=== PATIENT | female | born 1950 | race Caucasian/White ===

== ENCOUNTER → 2016-06-04 | Outpatient (CLI) | payer MEDICARE ==
[2016-04-30 09:55] VITALS: BP 133/73
[~2016-06-04] MED LIST: BUPR150T8 PO; CLON0.5T3 PO; CLOZ100T7 PO; ESCI10TA PO; LEVO175T5 PO; MULT-658 PO; OMEP20TA PO; RISP2TAB PO; SINCALIDE 1.52 MCG in IV NORMAL SALINE 50ML 30 ML IV ONE
--- NOTE | 2016-06-04 10:17 | RAD ---
Indication:Upper abdominal pain Grayscale images of the abdomen were obtained. Comparison 07/05/2012. Note is made of a CT examination of the abdomen and pelvis 04/06/2016 Liver:A focal mass lesion in the visualized liver is not seen. Tiny liver lesion, felt to represent a cyst, identified on the referenced CT examination is not reproduced on this study. Gallbladder:Normal. The common bile diameter of approximately 4 mm is normal. Spleen:Enlarged. There are occasional low density masses and the spleen and a hyperechoic mass. These probably represent cysts and hemangiomas respectively. Similar findings were seen on the previous ultrasound and the referenced CT examination. Pancreas:Largely obscured by gas and poorly visualized Kidneys:Normal Abdominal aorta and IVC:Similar to the pancreas poorly visualized and largely obscured] Ancillary findings:None Impression:Midline structures largely obscured. Splenomegaly with probable cysts and hemangiomas similar to previous exams. No acute finding seen
--- NOTE | 2016-06-04 12:25 | RAD ---
Radionuclide hepatobiliary scan with gallbladder ejection fraction, 06/04/2016: History: Abdominal pain Following IV injection of 5.5 mCi of technetium 99m Choletec there was prompt uptake of the radionuclide from the blood stream by the liver. Activity is present in the bile ducts and gallbladder at 10 minutes. Small bowel activity develops at 15 minutes. Additional imaging of the gallbladder was performed following IV injection of 1.5 mcg of cholecystokinin. The gallbladder ejection fraction was calculated at 84%. IMPRESSION: 1. Normal radionuclide hepatobiliary scan. 2. The gallbladder ejection fraction is 84%.
== END | disposition home or self-care (01) ==
LOC: US 09:18
PROVIDERS: ATTEND Physician Assistant
DX: R16.1 Splenomegaly, not elsewhere classified (principal); K76.9 Liver disease, unspecified
CPT/HCPCS: 76700; 78226; A9537; J2805

== ENCOUNTER 2017-10-23 15:01 | Inpatient (IN) | payer MEDICARE, BC ==
[2017-10-23] MEDS ORDERED: IV NORMAL SALINE 500ML BAG 500 ML IV (15:45)
[2017-10-23] MEDS: IBUPROFEN 800 MG TABLET. PO (15:48)
[2017-10-23] MEDS: ACETAMINOPHEN 500 MG TABLET PO (15:49)
[2017-10-23] MEDS: IV NORMAL SALINE 1000ML BAG 1,000 ML IV ×2 (15:49→22:47)
[2017-10-23 16:20] LABS: LACTIC ACID 2.3 mmol/L (0.4-2.0)
[2017-10-23 16:20] LABS: BILIRUBIN,URINE SMALL (NEG); CLARITY,URINE CLEAR; COLOR,URINE YELLOW; GLUCOSE,URINE NEGATIVE (NEG); NITRITE,URINE NEGATIVE (NEG); PH,URINE 5.5; PROTEIN,URINE NEGATIVE (NEG-TRACE)
[2017-10-23 16:33] LABS: ADD MAN DIFF? NO; BASO % 0 % (0-3); EOS % 0 % (0-3); HEMATOCRIT 37.8 % (36.0-47.0); HEMOGLOBIN 13.2 g/dL (12.0-15.5); LYMPH # 0.1 x10^3/uL (1.0-4.8); LYMPH % 4 % (24-48); MEAN CORPUSCULAR HEMOGLOBIN 31 pg (25-35); MEAN CORPUSCULAR HGB CONC 35 g/dL (31-37); MEAN CORPUSCULAR VOLUME 89 fL (79-100); MONO # 0.4 x10^3/uL (0.0-1.1); MONO % 11 % (0-9); NEUT # 2.7 x10^3uL (1.8-7.7); NEUT % 84 % (31-73); PLATELET COUNT 63 x10^3/uL (140-400); RED BLOOD COUNT 4.23 x10^6/uL (3.50-5.40); RED CELL DISTRIBUTION WIDTH 13.7 % (11.5-14.5); WHITE BLOOD COUNT 3.3 x10^3/uL (4.0-11.0)
[2017-10-23 16:41] LABS: BACTERIA,URINE MODERATE /HPF (0-FEW); HYALINE CASTS, URINE MODERATE /HPF; RBC,URINE 0 /HPF (0-2); SQUAMOUS EPITHELIAL CELL,UR MOD /LPF
[2017-10-23 16:44] LABS: ANION GAP 12 (6-14); BLOOD UREA NITROGEN 18 mg/dL (7-20); BUN/CREATININE RATIO 14 (6-20); CARBON DIOXIDE 26 mmol/L (21-32); CHLORIDE 103 mmol/L (98-107); CREATININE 1.3 mg/dL (0.6-1.0); GLUCOSE 147 mg/dL (70-99); POTASSIUM 4.1 mmol/L (3.5-5.1); SODIUM 141 mmol/L (136-145)
[2017-10-23 16:48] LABS: TROPONINI < 0.017 ng/mL (0.000-0.055)
[2017-10-23 16:49] LABS: ALBUMIN/GLOBULIN RATIO 1.6 (1.0-1.7); ALK PHOS 104 U/L (46-116); ALT (SGPT) 30 U/L (14-59); AST (SGOT) 29 U/L (15-37); TOTAL BILIRUBIN 0.5 mg/dL (0.2-1.0); TOTAL PROTEIN 6.5 g/dL (6.4-8.2)
[2017-10-23 16:53] LABS: CKMB INDEX 0.1 % (0-4); CKMB MASS 0.6 ng/mL (0.0-3.6); CREATINE KINASE 892 U/L (26-192)
[2017-10-23 17:02] LABS: % BANDS 5 % (0-9); % LYMPHS 10 % (24-48); % MONOS 9 % (0-10); % SEGS 76 % (35-66)
[2017-10-23 17:03] LABS: PLT ESTIMATE DECREASED (ADEQUATE)
[2017-10-23] MEDS ORDERED: ACETAMINOPHEN 325 MG TABLET. PO (17:15)
[2017-10-23] MEDS ORDERED: ONDANSETRON PF 4 MG/2 ML VIAL. IV ×2 (17:15)
[2017-10-23] MEDS ORDERED: MORPHINE SULFATE 2 MG/ML DISP.SYRIN. IV ×2 (17:15)
[2017-10-23] MEDS ORDERED: oxyCODONE IR 5 MG TABLET PO (17:15)
[2017-10-23] MEDS ORDERED: MAGNESIUM HYDROXIDE 2,400 MG/30 ML ORAL.SUSP. PO (17:15)
[2017-10-23] MEDS ORDERED: PROCHLORPERAZINE 10 MG/2 ML VIAL. IV (17:15)
[2017-10-23] MEDS ORDERED: PROCHLORPERAZINE 25 MG SUPP.RECT. PR (17:15)
[2017-10-23] MEDS ORDERED: LACTULOSE 20 GM/30 ML SOLUTION. PO (17:15)
[2017-10-23] MEDS ORDERED: MAG HYDROX/ALUMINUM HYD/SIMETH 30 ML ORAL.SUSP PO (17:15)
[2017-10-23] MEDS ORDERED: KETOROLAC 15 MG/ML VIAL. IV (17:15)
[2017-10-23] MEDS ORDERED: IBUPROFEN 400 MG TABLET. PO (17:15)
[2017-10-23] MEDS ORDERED: BISACODYL 10 MG SUPP.RECT. PR (17:15)
[2017-10-23] MEDS ORDERED: IBUPROFEN 800 MG TABLET. PO (17:15)
[2017-10-23] MEDS: CIPROFLOXACIN 400MG PREMIX 200 ML IV (17:44)
[2017-10-23 17:53] LABS: THYROID STIM HORMONE (TSH) 0.094 uIU/mL (0.358-3.74)
[2017-10-23 17:53] LABS: FREE T4 1.06 ng/dL (0.76-1.46)
[2017-10-23 17:57] LABS: PROCALCITONIN 0.39 ng/mL (0.00-0.10)
[2017-10-23] MEDS: IV 1/2 NORMAL SALINE 1,000 ML IV (20:24)
[2017-10-23 21:18] LABS: LACTIC ACID 1.1 mmol/L (0.4-2.0)
[2017-10-23] MEDS: DOCUSATE SODIUM 100 MG CAPSULE. PO (22:48)
[2017-10-24] MEDS: IV 1/2 NORMAL SALINE 1,000 ML IV ×2 (03:15→15:40)
[2017-10-24] MEDS: DOCUSATE SODIUM 100 MG CAPSULE. PO ×2 (08:05→21:09)
[2017-10-24] MEDS: clonazePAM 0.5 MG TABLET PO (08:05)
[2017-10-24] MEDS: CIPROFLOXACIN 400MG PREMIX 200 ML IV (08:06)
[2017-10-24] MEDS: CITALOPRAM 20 MG TABLET. PO (08:06)
[2017-10-24] MEDS: LEVOTHYROXINE 175 MCG TABLET PO (08:06)
[2017-10-24] MEDS: PANTOPRAZOLE 40 MG TABLET.DR. PO (08:06)
[2017-10-24] MEDS: MULTIVITAMIN with MINERAL TABLET. PO (08:06)
[2017-10-24] MEDS: cloZAPine 100 MG TABLET PO ×2 (08:07→21:08)
[2017-10-24] MEDS: cloZAPine 25 MG TABLET PO (08:07)
[2017-10-24 09:08] LABS: ANION GAP 9 (6-14); BLOOD UREA NITROGEN 15 mg/dL (7-20); CARBON DIOXIDE 23 mmol/L (21-32); CHLORIDE 106 mmol/L (98-107); CREATININE 1.2 mg/dL (0.6-1.0); GFR 44.9; GLUCOSE 204 mg/dL (70-99); POTASSIUM 3.9 mmol/L (3.5-5.1); SODIUM 138 mmol/L (136-145)
[2017-10-24 09:09] LABS: BASO % 0 % (0-3); EOS % 0 % (0-3); HEMATOCRIT 31.6 % (36.0-47.0); LYMPH # 0.1 x10^3/uL (1.0-4.8); LYMPH % 4 % (24-48); MEAN CORPUSCULAR HEMOGLOBIN 32 pg (25-35); MEAN CORPUSCULAR HGB CONC 35 g/dL (31-37); MEAN CORPUSCULAR VOLUME 90 fL (79-100); MONO # 0.3 x10^3/uL (0.0-1.1); MONO % 11 % (0-9); NEUT # 2.1 x10^3uL (1.8-7.7); NEUT % 85 % (31-73); PLATELET COUNT 48 x10^3/uL (140-400); RED CELL DISTRIBUTION WIDTH 13.4 % (11.5-14.5)
[2017-10-24 09:11] LABS: INR 1.2 (0.8-1.1); PROTHROMBIN TIME PATIENT 15.1 SEC (11.7-14.0)
[2017-10-24 09:13] LABS: ADD MAN DIFF? YES
[2017-10-24 10:36] LABS: % BANDS 5 % (0-9); % LYMPHS 8 % (24-48); % MONOS 3 % (0-10); % SEGS 84 % (35-66); PLT ESTIMATE DECREASED (ADEQUATE)
[2017-10-24 11:24] LABS: FIBRINOGEN 407 mg/dL (200-440); PARTIAL THROMBOPLASTIN TIME 39 SEC (24-38); RETIC COUNT 1.9 % (0.5-2.5)
[2017-10-24 11:44] LABS: LACTATE DEHYDROGENASE 228 U/L (81-234)
[2017-10-24 12:34] LABS: HIV AB SCREEN Nonreactive (Nonreactive)
[2017-10-24] MEDS: ACETAMINOPHEN 325 MG TABLET. PO (15:40)
[2017-10-24] MEDS: cefTRIAXone IV Push 1 GM VIAL. IVP (17:35)
[2017-10-24 20:09] LABS: MRSA BY PCR Negative (Negative)
[2017-10-25] MEDS: IV 1/2 NORMAL SALINE 1,000 ML IV ×3 (00:57→22:00)
[2017-10-25 05:16] LABS: ADD MAN DIFF? NO
[2017-10-25 05:28] LABS: BASO % 1 % (0-3); EOS % 0 % (0-3); HEMATOCRIT 30.6 % (36.0-47.0); HEMOGLOBIN 10.7 g/dL (12.0-15.5); LYMPH # 0.4 x10^3/uL (1.0-4.8); LYMPH % 16 % (24-48); MEAN CORPUSCULAR HEMOGLOBIN 31 pg (25-35); MEAN CORPUSCULAR HGB CONC 35 g/dL (31-37); MEAN CORPUSCULAR VOLUME 90 fL (79-100); MONO # 0.4 x10^3/uL (0.0-1.1); MONO % 15 % (0-9); NEUT # 1.7 x10^3uL (1.8-7.7); NEUT % 67 % (31-73); PLATELET COUNT 47 x10^3/uL (140-400); RED BLOOD COUNT 3.41 x10^6/uL (3.50-5.40); RED CELL DISTRIBUTION WIDTH 13.4 % (11.5-14.5); WHITE BLOOD COUNT 2.5 x10^3/uL (4.0-11.0)
[2017-10-25] MEDS: PANTOPRAZOLE 40 MG TABLET.DR. PO (08:25)
[2017-10-25] MEDS: LEVOTHYROXINE 175 MCG TABLET PO (08:25)
[2017-10-25] MEDS: cloZAPine 25 MG TABLET PO (09:00)
[2017-10-25] MEDS: cloZAPine 100 MG TABLET PO ×2 (09:00→20:07)
[2017-10-25] MEDS: clonazePAM 0.5 MG TABLET PO (09:04)
[2017-10-25] MEDS: MULTIVITAMIN with MINERAL TABLET. PO (09:04)
[2017-10-25] MEDS: CITALOPRAM 20 MG TABLET. PO (09:05)
[2017-10-25] MEDS: DOCUSATE SODIUM 100 MG CAPSULE. PO ×2 (09:05→20:33)
[2017-10-25] MEDS ORDERED: PIP/TAZO PER PHARMACY MC (13:45)
[2017-10-25] MEDS: PIPERACILLIN/TAZOBACTAM 3.375 GM in IV NORMAL SALINE 50ML 50 ML IV ×2 (14:33→18:42)
[2017-10-25] MEDS ORDERED: PIPERACILLIN/TAZOBACTAM 4.5 GM in IV NORMAL SALINE 100ML 100 ML IV (18:00)
[2017-10-25] MEDS: CALCIUM CARBONATE 500 MG TAB.CHEW PO (21:47)
[2017-10-26] MEDS: PIPERACILLIN/TAZOBACTAM 3.375 GM in IV NORMAL SALINE 50ML 50 ML IV ×5 (01:24→23:45)
[2017-10-26 05:38] LABS: ADD MAN DIFF? NO
[2017-10-26 06:06] LABS: C-REACTIVE PROTEIN 73.1 mg/L (0-3.3)
[2017-10-26 06:20] LABS: BASO % 0 % (0-3); EOS % 0 % (0-3); HEMATOCRIT 29.8 % (36.0-47.0); HEMOGLOBIN 10.5 g/dL (12.0-15.5); LYMPH # 0.5 x10^3/uL (1.0-4.8); LYMPH % 21 % (24-48); MEAN CORPUSCULAR HEMOGLOBIN 31 pg (25-35); MEAN CORPUSCULAR HGB CONC 35 g/dL (31-37); MEAN CORPUSCULAR VOLUME 89 fL (79-100); MONO # 0.3 x10^3/uL (0.0-1.1); MONO % 11 % (0-9); NEUT # 1.7 x10^3uL (1.8-7.7); NEUT % 67 % (31-73); PLATELET COUNT 56 x10^3/uL (140-400); RED BLOOD COUNT 3.35 x10^6/uL (3.50-5.40); RED CELL DISTRIBUTION WIDTH 13.5 % (11.5-14.5); WHITE BLOOD COUNT 2.5 x10^3/uL (4.0-11.0)
[2017-10-26] MEDS: PANTOPRAZOLE 40 MG TABLET.DR. PO (08:29)
[2017-10-26] MEDS: DOCUSATE SODIUM 100 MG CAPSULE. PO ×2 (08:29→20:47)
[2017-10-26] MEDS: clonazePAM 0.5 MG TABLET PO (08:29)
[2017-10-26] MEDS: CITALOPRAM 20 MG TABLET. PO (08:29)
[2017-10-26] MEDS: LEVOTHYROXINE 175 MCG TABLET PO (08:29)
[2017-10-26] MEDS: MULTIVITAMIN with MINERAL TABLET. PO (08:29)
[2017-10-26] MEDS: cloZAPine 25 MG TABLET PO (09:00)
[2017-10-26] MEDS: cloZAPine 100 MG TABLET PO ×2 (09:00→20:45)
[2017-10-26 10:03] LABS: VITAMIN-B12 254 pg/mL (247-911)
[2017-10-26 10:03] LABS: FOLATE > 20.00 ng/ml (3.2-20.0)
[2017-10-26] MEDS: ACETAMINOPHEN 325 MG TABLET. PO (11:24)
[2017-10-26] MEDS: LIDOCAINE (700MG/PATCH) PATCH. TD (11:33)
[2017-10-26] MEDS: IV 1/2 NORMAL SALINE 1,000 ML IV ×2 (11:33→23:46)
[2017-10-26] MEDS ORDERED: ACETAMINOPHEN 325 MG TABLET. PO (13:00)
[2017-10-26] MEDS: PATCH REMOVAL. MC (20:45)
[2017-10-27 05:35] LABS: ADD MAN DIFF? NO
[2017-10-27 05:38] LABS: BASO % 1 % (0-3); EOS % 0 % (0-3); HEMATOCRIT 29.8 % (36.0-47.0); HEMOGLOBIN 10.4 g/dL (12.0-15.5); LYMPH # 1.1 x10^3/uL (1.0-4.8); LYMPH % 39 % (24-48); MEAN CORPUSCULAR HEMOGLOBIN 31 pg (25-35); MEAN CORPUSCULAR HGB CONC 35 g/dL (31-37); MEAN CORPUSCULAR VOLUME 89 fL (79-100); MONO # 0.3 x10^3/uL (0.0-1.1); MONO % 11 % (0-9); NEUT # 1.4 x10^3uL (1.8-7.7); NEUT % 49 % (31-73); PLATELET COUNT 62 x10^3/uL (140-400); RED BLOOD COUNT 3.36 x10^6/uL (3.50-5.40); RED CELL DISTRIBUTION WIDTH 13.1 % (11.5-14.5); WHITE BLOOD COUNT 2.9 x10^3/uL (4.0-11.0)
[2017-10-27] MEDS: PIPERACILLIN/TAZOBACTAM 3.375 GM in IV NORMAL SALINE 50ML 50 ML IV (06:00)
[2017-10-27] MEDS: LEVOTHYROXINE 175 MCG TABLET PO (06:41)
[2017-10-27] MEDS: DOCUSATE SODIUM 100 MG CAPSULE. PO ×2 (08:38→20:14)
[2017-10-27] MEDS: MULTIVITAMIN with MINERAL TABLET. PO (08:38)
[2017-10-27] MEDS: PANTOPRAZOLE 40 MG TABLET.DR. PO (08:38)
[2017-10-27] MEDS: CITALOPRAM 20 MG TABLET. PO (08:38)
[2017-10-27] MEDS: clonazePAM 0.5 MG TABLET PO (08:38)
[2017-10-27] MEDS: cloZAPine 25 MG TABLET PO (08:43)
[2017-10-27] MEDS: cloZAPine 100 MG TABLET PO ×2 (08:43→20:14)
[2017-10-27] MEDS: LIDOCAINE (700MG/PATCH) PATCH. TD (08:48)
[2017-10-27 11:40] LABS: WHITE BLOOD COUNT 2.5 x10^3/uL (4.0-11.0)
[2017-10-27] MEDS: IV 1/2 NORMAL SALINE 1,000 ML IV (17:31)
[2017-10-27] MEDS: PATCH REMOVAL. MC (20:14)
[2017-10-27] MEDS: ZOLPIDEM 5 MG TABLET. PO (22:18)
[2017-10-28 04:57] LABS: ADD MAN DIFF? NO
[2017-10-28 05:06] LABS: BASO % 0 % (0-3); EOS % 0 % (0-3); HEMATOCRIT 28.7 % (36.0-47.0); LYMPH # 1.6 x10^3/uL (1.0-4.8); LYMPH % 48 % (24-48); MEAN CORPUSCULAR HEMOGLOBIN 31 pg (25-35); MEAN CORPUSCULAR HGB CONC 35 g/dL (31-37); MEAN CORPUSCULAR VOLUME 89 fL (79-100); MONO # 0.3 x10^3/uL (0.0-1.1); MONO % 10 % (0-9); NEUT # 1.4 x10^3uL (1.8-7.7); NEUT % 42 % (31-73); PLATELET COUNT 71 x10^3/uL (140-400); RED BLOOD COUNT 3.23 x10^6/uL (3.50-5.40); RED CELL DISTRIBUTION WIDTH 13.1 % (11.5-14.5); WHITE BLOOD COUNT 3.3 x10^3/uL (4.0-11.0)
[2017-10-28] MEDS: IV 1/2 NORMAL SALINE 1,000 ML IV ×2 (05:10→18:04)
[2017-10-28 05:29] LABS: ALBUMIN 2.7 g/dL (3.4-5.0); ALK PHOS 76 U/L (46-116); ALT (SGPT) 25 U/L (14-59); ANION GAP 10 (6-14); AST (SGOT) 18 U/L (15-37); BLOOD UREA NITROGEN 6 mg/dL (7-20); BUN/CREATININE RATIO 8 (6-20); CALCIUM 8.3 mg/dL (8.5-10.1); CARBON DIOXIDE 25 mmol/L (21-32); CHLORIDE 110 mmol/L (98-107); CREATININE 0.8 mg/dL (0.6-1.0); GFR 71.8; GLUCOSE 83 mg/dL (70-99); POTASSIUM 3.4 mmol/L (3.5-5.1); SODIUM 145 mmol/L (136-145); TOTAL BILIRUBIN 0.4 mg/dL (0.2-1.0); TOTAL PROTEIN 5.4 g/dL (6.4-8.2)
[2017-10-28] MEDS: cloZAPine 25 MG TABLET PO (09:00)
[2017-10-28] MEDS: cloZAPine 100 MG TABLET PO (09:00)
[2017-10-28] MEDS: CITALOPRAM 20 MG TABLET. PO (09:05)
[2017-10-28] MEDS: clonazePAM 0.5 MG TABLET PO (09:05)
[2017-10-28] MEDS: LEVOTHYROXINE 175 MCG TABLET PO (09:05)
[2017-10-28] MEDS: DOCUSATE SODIUM 100 MG CAPSULE. PO ×2 (09:06→20:46)
[2017-10-28] MEDS: MULTIVITAMIN with MINERAL TABLET. PO (09:06)
[2017-10-28] MEDS: PANTOPRAZOLE 40 MG TABLET.DR. PO (09:06)
[2017-10-28] MEDS: LIDOCAINE (700MG/PATCH) PATCH. TD (09:07)
[2017-10-28] MEDS: ZOLPIDEM 5 MG TABLET. PO (20:45)
[2017-10-28] MEDS: PATCH REMOVAL. MC (20:46)
[2017-10-29] MEDS: PANTOPRAZOLE 40 MG TABLET.DR. PO (08:40)
[2017-10-29] MEDS: MULTIVITAMIN with MINERAL TABLET. PO (08:41)
[2017-10-29] MEDS: CITALOPRAM 20 MG TABLET. PO (08:41)
[2017-10-29] MEDS: LEVOTHYROXINE 175 MCG TABLET PO (08:41)
[2017-10-29] MEDS: clonazePAM 0.5 MG TABLET PO (08:42)
[2017-10-29] MEDS: IV 1/2 NORMAL SALINE 1,000 ML IV (08:42)
[2017-10-29] MEDS: LIDOCAINE (700MG/PATCH) PATCH. TD (08:47)
[2017-10-29] MEDS: DOCUSATE SODIUM 100 MG CAPSULE. PO (09:00)
[2017-10-29] MEDS: POTASSIUM CHLORIDE 20 MEQ TABLET.ER. PO (09:05)
== END 2017-10-29 12:25 | disposition home health service (06) | DRG 871 ==
LOC: ER 15:01 → 5 SOUTH 17:10
PROVIDERS: Internal Medicine
PROC: 0HBHXZX Excision of Right Upper Leg Skin, External Approach, Diagnostic (ICD-10-PCS; principal; 2017-10-28)
DX: A41.9 Sepsis, unspecified organism (principal); N17.0 Acute kidney failure with tubular necrosis; N12 Tubulo-interstitial nephritis, not specified as acute or chronic; D61.818 Other pancytopenia; E44.0 Moderate protein-calorie malnutrition; E03.9 Hypothyroidism, unspecified; F20.9 Schizophrenia, unspecified; F32.9 Major depressive disorder, single episode, unspecified; F41.9 Anxiety disorder, unspecified; G89.29 Other chronic pain; I10 Essential (primary) hypertension; K21.9 Gastro-esophageal reflux disease without esophagitis; Z79.899 Other long term (current) drug therapy; Z80.7 Family history of other malignant neoplasms of lymphoid, hematopoietic and related tissues; Z87.440 Personal history of urinary (tract) infections; Z91.81 History of falling
CPT/HCPCS: 36415; 70450; 71045; 72125; 74176; 76700; 80048; 80053; 81001; 82553; 82607; 82746; 83605; 83615; 84145; 84439; 84443; 84481; 84484; 85007; 85025; 85045; 85384; 85610; 85730; 86140; 86703; 87040; 87086; 87641; 96361; 96365; 97116-GP; 97162-GP; 97166-GO; 97530-GO; 97530-GP; 97535-GO; 99285; 99285-25; J0690; J0696; J0744; J2543; J7030; P9612

== ENCOUNTER → 2018-08-05 | Outpatient (CLI) | payer MEDICARE ==
[2017-10-29 11:00] VITALS: BP 146/66
[~2018-08-05] MED LIST changes: +ACET500C2 PO; +ATOR10TA60 PO; +CALC200T98 PO; +CIPR250T30 PO; +CLON0.5T11 PO; -CLON0.5T3 PO; -ESCI10TA PO; +ESCITALOPRAM OX10 MG PO; +LEVO100T5 PO; +LEVO500T59 PO; +LOPE2CAP PO; +NYST100054 TOP; -OMEP20TA PO; +OMEP20TA8 PO; +OXYB10TA PO; -SINCALIDE 1.52 MCG in IV NORMAL SALINE 50ML 30 ML IV ONE; +UBID50CA25 PO
--- NOTE | 2018-08-05 10:18 | KCIC ---
Indication:Liver disease. Splenomegaly. TECHNIQUE: Grayscale, color Doppler and spectral waveform is of the abdomen obtained. COMPARISON: Previous ultrasound from 10/25/2017 FINDINGS: Visualized pancreas is within normal limits. Pancreatic tail not visualized due to overlying bowel gas. IVC and proximal and distal aorta not visualized due to overlying bowel gas. Mid aorta demonstrates no evidence of aneurysmal dilation. Liver is mildly enlarged measuring 19 cm in longest dimension with diffuse increased echogenicity. Main portal vein is patent with hepatopedal flow. CBD measures 6 cm in diameter and is mildly prominent. No gallstones, pericholecystic fluid or gallbladder wall thickening. Right kidney measures 11.3 cm in length without hydronephrosis. Spleen measures 16 cm in longest dimension and is mildly enlarged in size, previously 19 cm. Redemonstrated is a cystic septated lesion measuring 2.4 x 1.7 x 2.2 cm, previously 2.0 x 2.0 x 1.9 cm. Left kidney measures 11.0 cm in length without hydronephrosis. IMPRESSION: 1. Hepatosplenomegaly with improvement in previously seen splenomegaly. 2. Stable minimally complicated cyst in the spleen. 3. Hepatic steatosis. Electronically signed by: Jose Whyte DO (08/05/2018 10:15 AM) [facility]
== END | disposition home or self-care (01) ==
LOC: KCIC US 08:34
PROVIDERS: ATTEND Internal Medicine Hematology & Oncology
DX: K76.0 Fatty (change of) liver, not elsewhere classified (principal); R16.2 Hepatomegaly with splenomegaly, not elsewhere classified; D69.6 Thrombocytopenia, unspecified; R89.9 Unspecified abnormal finding in specimens from other organs, systems and tissues
CPT/HCPCS: 76700

== ENCOUNTER 2019-02-06 12:40 | Emergency (ER) | payer MEDICARE ==
[~2019-02-06] VITALS: Ht 160 cm; Wt 84.4 kg
[~2019-02-06 12:40] MED LIST changes: +CLON-77 PO; -CLON0.5T11 PO; -OXYB10TA PO; +OXYB10TA2 PO
--- NOTE | 2019-02-06 13:53 | PHYS DOC ---
Past Medical History Past Medical History: Depression, GERD, Hypertension, Hypothyroid, Schizo phrenia, UTI Past Surgical History: Other Additional Past Surgical Histo: unknown Alcohol Use: None Drug Use: None Adult General Chief Complaint Chief Complaint: MECHANICAL FALL HPI HPI Patient is a 68-year-old female, who arrives via EMS from her assisted living facility. The patient states that she tripped over her feet and fell, landing on the floor. She does complain of some right ankle pain, and states that she thinks she hit her head gently, but is not having any headache or any head pain. She denies any neck pain or back pain, or any other extremity pain, or any numbness or weakness. She reports having had chest pain in her anterior chest for several weeks, worse with palpation and deep breathing, but she denies any shortness of breath, dizziness or lightheadedness, numbness, or weakness. There are no alleviating or exacerbating factors to her symptoms. The patient does have a walker to use for long distances, according to her daughter, but does not use it regularly, or in the home on a regular basis. Review of Systems Review of Systems Constitutional: Denies fever or chills [] Eyes: Denies change in visual acuity, redness, or eye pain [] HENT: Denies nasal congestion or sore throat [] Respiratory: Denies cough or shortness of breath [] Cardiovascular: The patient denies any shortness of breath, chest pain, palpitations, or orthopnea [] GI: Denies abdominal pain, nausea, vomiting, bloody stools or diarrhea [] : Denies dysuria or hematuria [] Musculoskeletal: Denies back pain or joint pain, except the right ankle [] Integument: Denies rash or skin lesions [] Neurologic: Denies headache, focal weakness or sensory changes [] Endocrine: Denies polyuria or polydipsia [] All other systems were reviewed and found to be within normal limits, except as documented in this note. Current Medications Current Medications Current Medications Medications (Trade) Dose Ordered Sig/Idris Start Time Stop Time Status Last Admin Dose Admin Acetaminophen (Tylenol) 1,000 mg 1X ONCE 02/06/19 14:00 02/06/19 14:01 DC 02/06/19 14:36 1,000 MG Allergies Allergies Allergies Coded Allergies Type Severity Reaction Last Updated Verified piperacillin Allergy Intermediate Rash 10/27/17 Yes tazobactam Allergy Intermediate Rash 10/27/17 Yes Physical Exam Physical Exam PHYSICAL EXAM: CONSTITUTIONAL: Well developed, well nourished HEAD: normocephalic, atraumatic. There is no tenderness to palpation to the cranium. EENT: PERRL, EOMI. Conjunctivae normal color, sclerae non-icteric; moist mucous membranes. NECK: Supple, non-tender; no meningismus.There is full, painless range of motion of the cervical spine, without any focal bony midline tenderness to palpation. LUNGS: Lungs CTA, breathing even and unlabored. Normal air movement. HEART: Regular rate and rhythm, no murmur CHEST: No deformity; there is tenderness to palpation to the anterior chest diffusely, which reproduces the patient's pain. There is a chronic-appearing pectus excavatum deformity to the chest. ABDOMEN: The abdomen is soft, and non-tender, no masses or bruits. EXTREM: Normal ROM; no deformity, no calf tenderness. Normal pulses palpable in all extremities. There is no pedal edema. There is mild soft tissue swelling along the lateral malleolus of the right ankle, without any focal bony tenderness to palpation, ligaments laxity, or deformity. SKIN: No rash; no diaphoresis NEURO: Alert; normal speech and cognition; CN's grossly intact; strength grossly intact without focal deficit. BACK: No CVA TTP.There is no bony tenderness to palpation of the thoracic or lumbar spine. Current Patient Data Vital Signs Vital Signs Date Time Temp Pulse Resp B/P (MAP) Pulse Ox O2 Delivery O2 Flow Rate FiO2 02/06/19 13:00 98.6 70 17 151/71 (97) 95 Room Air 98.6 Lab Values Laboratory Tests Test 02/06/19 12:55 Troponin I Quantitative < 0.017 ng/mL (0.000-0.055) EKG EKG Normal sinus rhythm at a rate of 72 beats for minute, normal axis, normal intervals, nonspecific ST/T changes with low voltage is present.[] Radiology/Procedures Radiology/Procedures [PROCEDURE: ANKLE RIGHT 3V Exam performed: One view chest and 3 views right ankle. Indication: Fall, pain Date of Service: 02/06/2019 1:54 PM Comparison: One view chest from 01/04/2018. Single AP upright portable view chest findings: Cardiomediastinal silhouette is within limits of normal. Ectatic tortuous aorta with slight widening of the superior mediastinum noted. There is a linear opacity in the right midlung. No acute infiltrates, effusion or pneumothorax is detected. The bony structures are normal. Impression: Mild cardiomegaly with ectatic tortuous aorta. Linear opacity in the right midlung scarring. End impression 3 views right ankle findings: Normal alignment of the ankle mortise is preserved. There is no acute fracture or dislocation. There is diffuse soft tissue swelling about the ankle joint. No foreign body. IMPRESSION: Diffuse soft tissue swelling without underlying acute bony abnormality.] Course & Med Decision Making Course & Med Decision Making Pertinent Labs and Imaging studies reviewed. (See chart for details) []2:50 PM: The patient's condition remains stable. I discussed test results with the patient and her daughter. Her chest x-ray, which I reviewed, is the same as it has been in October 2017. She is rotated to the right somewhat on both films, likely accentuated and mediastinal widening. I am not highly suspicious she has an aortic aneurysm or acute dissection, although I did discuss the possibility of further outpatient imaging with the patient and her daughter. The importance of close follow-up and return precautions were discussed, as was importance of using her walker at home to minimize recurrent or further falls. Dragon Disclaimer Dragon Disclaimer This electronic medical record was generated, in whole or in part, using a voice recognition dictation system. Departure Departure Impression: Primary Impression: Accidental fall Additional Impression: Atypical chest pain Disposition: 01 HOME, SELF-CARE Condition: STABLE Referrals: JERRY HARRIS MD (PCP) Patient Instructions: Chest Pain (Nonspecific), Fall Prevention and Home Safety Additional Instructions: Tylenol as needed for pain. Problem Qualifiers TERESA MONCADA MD Feb 06, 2019 13:53
[2019-02-06] MEDS ORDERED: ACETAMINOPHEN 500 MG TABLET PO ONE (14:00)
--- NOTE | 2019-02-06 14:18 | RAD ---
Exam performed: One view chest and 3 views right ankle. Indication: Fall, pain Date of Service: 02/06/2019 1:54 PM Comparison: One view chest from 01/04/2018. Single AP upright portable view chest findings: Cardiomediastinal silhouette is within limits of normal. Ectatic tortuous aorta with slight widening of the superior mediastinum noted. There is a linear opacity in the right midlung. No acute infiltrates, effusion or pneumothorax is detected. The bony structures are normal. Impression: Mild cardiomegaly with ectatic tortuous aorta. Linear opacity in the right midlung scarring. End impression 3 views right ankle findings: Normal alignment of the ankle mortise is preserved. There is no acute fracture or dislocation. There is diffuse soft tissue swelling about the ankle joint. No foreign body. IMPRESSION: Diffuse soft tissue swelling without underlying acute bony abnormality. Electronically signed by: Justyna Kessler MD (02/06/2019 2:15 PM) [facility]
[2019-02-06 15:30] VITALS: BP 144/72
--- NOTE | 2019-02-07 07:38 | EKG ---
[facility] [address] [place] [address] Test Date: 2019-02-06 Test Time: 12:54:05 Pat Name: ANALIA GAY Department: Room: Gender: F Contract Engineer: : [id number] Requested By: TERESA MONCADA Order Number: [id number] Reading MD: Mckay Hughes MD Measurements Intervals [place] Rate: 72 P: 24 NH: 174 QRS: 5 QRSD: 82 T: 34 QT: 398 QTc: 437 Interpretive Statements SINUS RHYTHM NON-SPECIFIC ST/T CHANGES Electronically Signed On 02-21-2019 9:16:29 CDT by Mckay Hughes MD
== END 2019-02-06 15:27 | disposition home or self-care (01) ==
LOC: ER 12:40
DX: R07.89 Other chest pain (principal); M25.571 Pain in right ankle and joints of right foot; I10 Essential (primary) hypertension; E03.9 Hypothyroidism, unspecified; F32.9 Major depressive disorder, single episode, unspecified; Z88.1 Allergy status to other antibiotic agents; W01.0XXA Fall on same level from slipping, tripping and stumbling without subsequent striking against object, initial encounter; Y93.89 Activity, other specified; Y92.89 Other specified places as the place of occurrence of the external cause; Y99.8 Other external cause status
CPT/HCPCS: 36415; 71045; 73610; 84484; 93005; 99285-25

== ENCOUNTER → 2019-06-14 | Day surgery (SDC) | payer MEDICARE, MEDICAID ==
[~2019-06-14] MED LIST changes: +IV RINGERS,LACTATED 1000ML 1,000 ML IV SCH; +LIDOCAINE 2% PF 5 ML VIAL. ONE; +NYST60PO TP; -OXYB10TA2 PO; +OXYB10TA26 PO; +PANT40TA77 PO; +PROPOFOL 20 ML IV ONE
[2019-06-14 17:25] VITALS: BP 145/66
== END | disposition home or self-care (01) ==
LOC: SURG 15:47
PROVIDERS: ATTEND Internal Medicine Gastroenterology
DX: R10.13 Epigastric pain (principal); K44.9 Diaphragmatic hernia without obstruction or gangrene; K31.89 Other diseases of stomach and duodenum; K31.7 Polyp of stomach and duodenum; I10 Essential (primary) hypertension; K21.9 Gastro-esophageal reflux disease without esophagitis; M19.90 Unspecified osteoarthritis, unspecified site; F41.9 Anxiety disorder, unspecified; F32.9 Major depressive disorder, single episode, unspecified; E03.9 Hypothyroidism, unspecified; F17.210 Nicotine dependence, cigarettes, uncomplicated; Z88.1 Allergy status to other antibiotic agents; Z88.8 Allergy status to other drugs, medicaments and biological substances; Z79.899 Other long term (current) drug therapy; Z79.84 Long term (current) use of oral hypoglycemic drugs; Z98.890 Other specified postprocedural states
CPT/HCPCS: 43235; J2001; J2704

== ENCOUNTER → 2019-07-11 | Outpatient (CLI) | payer MEDICARE, MEDICAID ==
[2019-06-14 17:25] VITALS: BP 145/66
[~2019-07-11] MED LIST changes: -IV RINGERS,LACTATED 1000ML 1,000 ML IV SCH; -LIDOCAINE 2% PF 5 ML VIAL. ONE; -PROPOFOL 20 ML IV ONE
--- NOTE | 2019-07-11 11:25 | RAD ---
Limited abdomen ultrasound study of the right upper quadrant Clinical indications: Epigastric pain with nausea and vomiting. FINDINGS: The pancreas is poorly visualized due to overlying bowel gas. The liver measures 14.7 cm in length which is normal. No hepatic mass is seen. The gallbladder is normal and no gallstones or pericholecystic free fluid or gallbladder wall thickening is seen. The extrahepatic bile duct measures 4 mm in caliber which is normal. The lower pole of the right kidney is obscured by overlying bowel gas. Otherwise, no renal mass or hydronephrosis or perinephric fluid collection is seen on either side. The length of the right kidney is 10.9 cm. IMPRESSION: Unremarkable right upper quadrant abdomen ultrasound study. Electronically signed by: Celestine Land MD (07/11/2019 11:22 AM) [facility] [place]
== END | disposition home or self-care (01) ==
LOC: US 10:10
PROVIDERS: ATTEND Internal Medicine Gastroenterology
DX: R10.13 Epigastric pain (principal); R11.2 Nausea with vomiting, unspecified
CPT/HCPCS: 76705